=== PATIENT | female | born 1980 | race Caucasian/White ===

== ENCOUNTER 2024-09-13 14:57 | Emergency (ER) | payer BC, SELFPAY ==
--- NOTE | 2024-09-13 15:18 | ED.GENMED ---
ED Provider Triage
<Cale Phillips PA-C - Last Filed: 09/13/24 15:20>
-
Patient seen by provider in Triage?: Seen in Triage
Attestation: A medical screening examination has been initiated by a qualified medical provider. Based on the assessment performed at this time, it has been determined that an emergent medical condition may exist and the patient has been informed
that further medical evaluation and possible additional diagnostic testing may be needed.
HPI: 43-year-old female presenting to the emergency department for evaluation following an accidental fall this morning after slipping on ice. Patient landed on the left side of her back and notes left lower back/pelvic pain since the fall that
worsens with movement or when attempting to lift her left leg. No other injuries were sustained. No head injury, no LOC, no vomiting. Patient did take some Tylenol prior to arrival. She reports no concern for . X-rays ordered. Patient
otherwise to stable
GENERAL: Alert , in no apparent distress
EYE: No visual abnormalities.
NECK: Trachea midline
ENT: No visible abnormalities.
LUNGS: No acute respiratory distress
NEUROLOGICAL: Alert and oriented
SKIN: Skin intact. No visible changes.
MUSCULOSKELETAL: Moving extremities normally
PSYCH: Normal and appropriate interaction.
This is a medical evaluation conducted in person to initiate diagnostic evaluation and provide initial therapeutics. Please see further documentation by the treating clinician.
History of Present Illness
<Cale Phillips PA-C - Last Filed: 09/13/24 15:20>
General
Chief Complaint: Fall
Time Seen by Provider: 09/13/24 16:54
<Jaime Metcalf Jr., PA-C - Last Filed: 09/13/24 18:13>
General
Source: patient
Exam Limitations: none
Nursing documentation reviewed up to this point in time: agreed with
History of Present Illness
History of Present Illness:
43-year-old female presenting to the emergency department today with concerns of left low back discomfort after slipping on ice. Denies hitting her head denies loss of consciousness no changes in urination. No changes in bowel movements.
Review of Systems
<Jaime Metcalf Jr., PA-C - Last Filed: 09/13/24 18:13>
Review of Systems
Allergies reviewed?: Yes
All Other Systems: ROS reviewed and negative except as documented in HPI and ROS
Phy Exam
<Jaime Metcalf Jr., PA-C - Last Filed: 09/13/24 18:13>
Physical Exam
Physical Exam:
GENERAL: Alert , in no apparent distress
EYE: pupils equal and reactive
NECK: Supple, no significant adenopathy.
ENT: o/p clr, mmm.
CARDIAC: Regular rate and rhythm .
LUNGS: Clear breath sounds bilaterally, no acute respiratory distress, no wheezes/rales/rhonchi
ABDOMEN: Soft, without focal tenderness, no r/g, no cvat
NEUROLOGICAL: Alert and oriented, no focal neuro deficits
SKIN: Warm and dry, skin intact.
MUSCULOSKELETAL: Mild tenderness palpation to the left lumbar paraspinal muscles no midline pain no CVA tenderness no abdominal pain normal range of motion strength of all 4 extremities no edema, well perfused.
PSYCH: Normal and appropriate interaction.
Course
<Cale Phillips PA-C - Last Filed: 09/13/24 15:20>
Orders/Labs/Results
Orders:
Orders
09/13/24 15:19
CR Lumbar Spine Comp Min 4 Vw* Urgent
Comment:
Reason For Exam: fall, low back pain
CR Pelvis - 1 Or 2 Views Urgent
Comment:
Reason For Exam: fall on ice, left pelvic pain
Vital Signs
Initial and Last Documented VS:
Initial Vital Signs
Temp Pulse Resp BP Pulse Ox
98.1 F 84 20 126/80 99
09/13/24 15:19 09/13/24 15:19 09/13/24 15:19 09/13/24 15:19 09/13/24 15:19
Last Documented Vital Signs
Temp Pulse Resp BP Pulse Ox
98.1 F 84 20 126/80 99
09/13/24 15:19 09/13/24 15:19 09/13/24 15:19 09/13/24 15:19 09/13/24 15:19
<Jaime Metcalf Jr., PA-C - Last Filed: 09/13/24 18:13>
Orders/Labs/Results
Orders:
Orders
09/13/24 15:19
CR Lumbar Spine Comp Min 4 Vw* Urgent
Comment:
Reason For Exam: fall, low back pain
CR Pelvis - 1 Or 2 Views Urgent
Comment:
Reason For Exam: fall on ice, left pelvic pain
Vital Signs
Initial and Last Documented VS:
Initial Vital Signs
Temp Pulse Resp BP Pulse Ox
98.1 F 84 20 126/80 99
09/13/24 15:19 09/13/24 15:19 09/13/24 15:19 09/13/24 15:19 09/13/24 15:19
Last Documented Vital Signs
Temp Pulse Resp BP Pulse Ox
98.1 F 84 20 126/80 99
09/13/24 15:19 09/13/24 15:19 09/13/24 15:19 09/13/24 15:19 09/13/24 15:19
<Jaime Metcalf Jr., PA-C - Last Filed: 09/13/24 18:13>
MDM/Problems Addressed
MDM/Problems Addressed:
43-year-old female presenting to the emergency department today with concerns of left low back discomfort after slip and fall on ice. Pain mainly to the lumbar paraspinal muscles. X-ray of the low back and pelvis without signs of fracture.
Patient with likely soft tissue injury. Patient is urinating normally. Otherwise stable for outpatient management return precautions given.
<Jaime Metcalf Jr., PA-C - Last Filed: 09/13/24 18:13>
*Critical Care Note
Total Time (30-74mins, 75-104mins- exclusive of procedures): Not Applicable
ED Attending Note
<Cale Phillips PA-C - Last Filed: 09/13/24 15:20>
-
Portions of this chart may have been created with voice recognition software.� Occasional wrong word or��sound alike� substitutions may have occurred due to the inherent limitations of voice recognition software.
Discharge Plan
Departure
Patient Disposition: Home (Routine Discharge)
Date of Disposition: 09/13/24
Time of Disposition: 18:09
Patient with high blood pressure during this ER visit?: No
Condition: Good
Covid-19: Not Applicable
Discharge Problem:
Fall, Back pain
Instructions: Contusion (DC)
Prescriptions:
New
ibuprofen 600 mg tablet
600 mg PO Q8H PRN (Reason: Pain) Qty: 20 0RF
cyclobenzaprine 10 mg tablet
10 mg PO BID PRN (Reason: muscle spasm) Qty: 7 0RF
No Action
Multivitamins Tablet
1 tab PO DAILY
ibuprofen 600 MG tablet
600 mg PO Q4HPRN PRN (Reason: moderate pain/cramps) Qty: 0 0RF
Referrals:
Derrell Oliveira MD [Family Provider] -
Activity Restrictions/Additional Instructions:
You came to the emergency department today after a fall. Here your x-rays did not show any emergent findings. Please follow-up closely as an outpatient for any ongoing symptoms otherwise take the prescribed medications. Return for any worsening,
new or concerning symptoms.
Interventions
Interventions:
*Risk Screen - Suicide Last Done: 09/13/24 17:13
*General Assessment Last Done: 09/13/24 15:19
*Neglect/Abuse Screening Last Done: 09/13/24 17:13
*ED COVID-19 Vaccine History Last Done: 09/13/24 17:13
ED-Musculoskeletal Assessment Last Done: 09/13/24 17:13
ED- Neurological Assessment Last Done: 09/13/24 17:13
ED-Skin Assessment Last Done: 09/13/24 17:13
Discharge Date and Time
Print Language: KOSOVAN
[2024-09-13 15:19] VITALS: BP 126/80
== END 2024-09-13 18:32 | disposition home or self-care (01) ==
LOC: EMR 14:57
PROVIDERS: EMERGENCY PHYSICIAN Emergency Medicine; FAMILY PHYSICIAN Family Medicine
DX: M54.50 Low back pain, unspecified (principal); W00.0XXA Fall on same level due to ice and snow, initial encounter
CPT/HCPCS: 99283; 72110; 72170